=== PATIENT | female | born 1995 | race American Indian/Alaskan Native ===

== ENCOUNTER 2018-07-11 06:23 | Day surgery (SDC) | payer OTHER ==
[2018-06-27 09:20] VITALS: BMI 42.0
[2018-07-11] MEDS ORDERED: ceFAZolin IV 1 gm in Dextrose 0 GM/0 ML BAG IVPB ONE (06:54)
[2018-07-11] MEDS ORDERED: Morphine 10 mg/5 ml Oral Soln PO PRN (08:30)
[2018-07-11] MEDS ORDERED: Dextrose 5%/0.45% NS 1,000 ML IV SCH (08:30)
[2018-07-11] MEDS ORDERED: Propofol 10 mg/ml Inj (20 ML) ONE ×2 (09:09→09:59)
[2018-07-11] MEDS ORDERED: Midazolam 2 MG/2 ML VIAL ONE (09:10)
[2018-07-11] MEDS ORDERED: ceFAZolin 1 gm in NS 2 GM/200 ML BAG IVPB ONE (09:43)
[2018-07-11 11:33] VITALS: RESP 16
[2018-07-11 11:52] VITALS: TEMP 97.6
[2018-07-11 12:19] VITALS: BP 107/74; PULSE 67; O2SAT 100
--- NOTE | 2018-07-11 21:17 | OP ---
PROCEDURE DATE: 07/11/2018 PREOPERATIVE DIAGNOSIS: Chronic tonsillitis. POSTOPERATIVE DIAGNOSIS: Chronic tonsillitis. PROCEDURE: Tonsillectomy. SURGEON: Taye Sanchez MD SIGNIFICANT FINDINGS: Chronically infected tonsils. DESCRIPTION OF PROCEDURE: The patient was brought into the room, placed in supine position. Anesthesia was initiated through an ET tube. The patient was draped in usual manner. Mouth gag was placed in oral cavity, opened and suspended on towels raised on the patient's chest. Right tonsil was grabbed and pulled medially. Incision was made in the anterior tonsillar pillar using coblation. Dissection was done between tonsil and tonsillar fossa using coblation until the tonsil was removed. Bleeding was controlled using coblation. Next, the other tonsil was grabbed and pulled medially. Incision was made in the anterior tonsillar pillar using coblation. Dissection was done between tonsil and tonsillar fossa using coblation until the tonsil was removed. Bleeding was controlled using coblation. Both tonsillar beds were rubbed vigorously with coblation wand. No bleeding was noted. Mouth gag was let down for 30 seconds, put back up, no bleeding was noted. Mouth gag was taken down and removed. The patient was taken off anesthesia and taken to the recovery room in stable manner. Taye Sanchez MD
== END 2018-07-11 12:22 | disposition home or self-care (01) ==
LOC: C.SDS 06:23
PROVIDERS: ATTEND Otolaryngology
DX: J35.01 Chronic tonsillitis (principal)
CPT/HCPCS: 42826; 88304; J0690; J2250; J2704; J3010